=== PATIENT | female | born 1975 | race African-American/Black ===

== ENCOUNTER 2021-10-03 10:23 | Emergency (ER) | payer MEDICAID, OTHER ==
[~2021-10-03] VITALS: Ht 165.1 cm; Wt 79.0 kg
[~2021-10-03 10:23] MED LIST: PRENATAL
[2021-10-03] MEDS ORDERED: NAPR-681 MT (14:09)
[2021-10-03 14:14] VITALS: BP 139/94
[2021-10-03] MEDS ORDERED: IBUPROFEN 600MG TABLET PO ONE (14:15)
== END 2021-10-03 14:24 | disposition home or self-care (01) ==
LOC: ER 10:23
DX: R07.81 Pleurodynia (principal); Z98.890 Other specified postprocedural states
CPT/HCPCS: 71101; 74176; 81025; 99284